=== PATIENT | male | born 1990 | race African-American/Black ===

== ENCOUNTER 2017-08-09 23:32 | Inpatient (IN) | payer OTHER ==
[~2017-08-09] VITALS: Ht 177.8 cm; Wt 82.0 kg
[2017-08-09 23:34] VITALS: BP 138/72; PULSE 89; RESP 16; TEMP 98.1; O2SAT 97
[2017-08-10] VITALS (8 sets, daily range): BP systolic 108–121; BP diastolic 51–71; PULSE 55–82; RESP 18–20; TEMP 97.7–98.6; O2SAT 97–100
[2017-08-10] MEDS ORDERED: SODIUM CHLOR 0.9% 1000 ML INJ 1,000 ML IV SCH (00:08)
--- NOTE | 2017-08-10 00:11 | PD ---
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 States he's also had some dark urine. States had kidney stone in the past but this is worse. Denies fevers, endorses nausea without vomiting. Pain is severe and intermittent. PFSH Past Medical History ADHD: Yes Diminished Hearing: No Kidney Stones: Yes Tetanus Vaccination: Unknown Influenza Vaccination: No Past Surgical History Endocrine Surgery: Yes (LITHOTRIPSY, STENT PLACED IN KIDNEY) Other Surgery: Yes (LEFT HAND) Social History Alcohol Use: Yes (OCCASSIONALLY) Tobacco Use: Yes (1PPD) [facility]: [facility] Allergies-Medications (Allergen,Severity, Reaction): Coded Allergies: acetaminophen (Verified Allergy, Severe, Hives, 08/09/17) hydrocodone (Verified Allergy, Severe, Hives, 08/09/17) tramadol (Verified Allergy, Severe, 08/09/17) Reported Meds & Prescriptions Reported Meds & Active Scripts Active No Active Prescriptions or Reported Medications Review of Systems Except as stated in HPI: all other systems reviewed are Neg Physical Exam Narrative GENERAL: WD/WN uncomfortable. SKIN: Warm and dry. HEAD: Atraumatic. Normocephalic. EYES: Pupils equal and round. No scleral icterus. No injection or drainage. ENT: No nasal bleeding or discharge. Mucous membranes pink and moist. NECK: Trachea midline. No JVD. CARDIOVASCULAR: Regular rate and rhythm. RESPIRATORY: No accessory muscle use. Clear to auscultation. Breath sounds equal bilaterally. GASTROINTESTINAL: Abdomen soft, non-tender, nondistended. Hepatic and splenic margins not palpable. CVA tenderness on right. MUSCULOSKELETAL: Extremities without clubbing, cyanosis, or edema. No obvious deformities. NEUROLOGICAL: Awake and alert. No obvious cranial nerve deficits. Motor grossly within normal limits. Five out of 5 muscle strength in the arms and legs. Normal speech. PSYCHIATRIC: Appropriate mood and affect; insight and judgment normal. Data Data Last Documented VS Vital Signs Date Time Temp Pulse Resp B/P (MAP) Pulse Ox O2 Delivery O2 Flow Rate FiO2 08/10/17 00:00 18 98 Room Air 08/09/17 23:34 98.1 89 Orders Orders Complete Blood Count With Diff (08/10/17 00:08) Comprehensive Metabolic Panel (08/10/17 00:08) Lipase (08/10/17 00:08) Urinalysis - C+S If Indicated (08/10/17 00:08) Ct Abd/Pel W/O Iv Contrast (08/10/17 00:08) Iv Access Insert/Monitor (08/10/17 00:08) Ecg Monitoring (08/10/17 00:08) Oximetry (08/10/17 00:08) Ondansetron Inj (Zofran Inj) (08/10/17 00:15) Sodium Chlor 0.9% 1000 Ml Inj (Ns 1000 M (08/10/17 00:08) Sodium Chloride 0.9% Flush (Ns Flush) (08/10/17 00:15) Ketorolac Inj (Toradol Inj) (08/10/17 00:15) Lorazepam Inj (Ativan Inj) (08/10/17 00:15) Urine Culture (08/10/17 00:10) Morphine Inj (Morphine Inj) (08/10/17 01:15) Sodium Chlor 0.9% 1000 Ml Inj (Ns 1000 M (08/10/17 01:15) Creatine Kinase (Cpk) (08/10/17 00:10) CKMB (08/10/17 00:10) CKMB% (08/10/17 00:10) Hydromorphone Pf Inj (Dilaudid Pf Inj) (08/10/17 02:45) Sodium Chlor 0.9% 1000 Ml Inj (Ns 1000 M (08/10/17 02:45) Admit Order (Ed Use Only) (08/10/17 ) Labs Laboratory Tests Test 08/10/17 00:10 White Blood Count 11.5 TH/MM3 Red Blood Count 4.44 MIL/MM3 Hemoglobin 15.3 GM/DL Hematocrit 45.6 % Mean Corpuscular Volume 102.5 FL Mean Corpuscular Hemoglobin 34.5 PG Mean Corpuscular Hemoglobin Concent 33.6 % Red Cell Distribution Width 13.2 % Platelet Count 266 TH/MM3 Mean Platelet Volume 8.5 FL Neutrophils (%) (Auto) 82.9 % Lymphocytes (%) (Auto) 8.9 % Monocytes (%) (Auto) 7.7 % Eosinophils (%) (Auto) 0.1 % Basophils (%) (Auto) 0.4 % Neutrophils # (Auto) 9.5 TH/MM3 Lymphocytes # (Auto) 1.0 TH/MM3 Monocytes # (Auto) 0.9 TH/MM3 Eosinophils # (Auto) 0.0 TH/MM3 Basophils # (Auto) 0.0 TH/MM3 CBC Comment DIFF FINAL Differential Comment Urine Color DARK-YELLOW Urine Turbidity HAZY Urine pH 5.0 Urine Specific [place] 1.026 Urine Protein 30 mg/dL Urine Glucose (UA) NEG mg/dL Urine Ketones TRACE mg/dL Urine Occult Blood MOD Urine Nitrite NEG Urine Bilirubin NEG Urine Urobilinogen 2.0 MG/DL Urine Leukocyte Esterase MOD Urine RBC 119 /hpf Urine WBC 12 /hpf Urine Squamous Epithelial Cells 2 /hpf Urine Transitional Epithelial Cells <1 /hpf Urine Uric Acid Crystals FEW /hpf Urine Bacteria RARE /hpf Urine Hyaline Casts 157 /lpf Urine Mucus FEW /lpf Microscopic Urinalysis Comment CULTURE INDICATED Blood Urea Nitrogen 25 MG/DL Creatinine 3.15 MG/DL Random Glucose 103 MG/DL Total Protein 9.7 GM/DL Albumin 5.3 GM/DL Calcium Level 10.4 MG/DL Alkaline Phosphatase 88 U/L Aspartate Amino Transf (AST/SGOT) 47 U/L Alanine Aminotransferase (ALT/SGPT) 42 U/L Total Bilirubin 0.5 MG/DL Sodium Level 138 MEQ/L Potassium Level 3.9 MEQ/L Chloride Level 102 MEQ/L Carbon Dioxide Level 24.7 MEQ/L Anion Gap 11 MEQ/L Estimat Glomerular Filtration Rate 28 ML/MIN Total Creatine Kinase 1316 U/L Creatine Kinase MB 21.2 NG/ML Creatine Kinase MB % 1.6 % Lipase 152 U/L [facility] Medical Decision Making Medical Screen Exam Complete: Yes Emergency Medical Condition: Yes Differential Diagnosis Kidney stone, CALISTA, UTI, rhabdomyolysis. Narrative Course Patient roomed in ED has CALISTA with cr of 3. Kidney stone in bladder probably recently passed. Hematuria without infection. Multiple doses of pain medicine given. Discussed with Dr. Blcak for admission. Diagnosis Primary Impression: CALISTA (acute kidney injury) Additional Impressions: Rhabdomyolysis Body aches Hematuria Admitting Information Admitting Physician Requests: Admit Scripts No Active Prescriptions or Reported Meds Condition: Stable Emmanuel Oneill MD Aug 10, 2017 00:11
[2017-08-10] MEDS ORDERED: LORazepam 2 MG/ML VIAL IV PUSH ONE (00:15)
[2017-08-10] MEDS ORDERED: KETOROLAC TROMETHAMINE 30 MG/ML (IVP) VIAL IVP ONE (00:15)
[2017-08-10] MEDS ORDERED: ONDANSETRON HCL 4 MG/2 ML VIAL IVP ONE (00:15)
[2017-08-10] MEDS ORDERED: SODIUM CHLORIDE 0.9% FLUSH 10 ML FLUSH IV FLUSH PRN ×2 (00:15→03:00)
[2017-08-10 00:33] LABS: AUTOMATED NEUTROPHIL # 9.5 TH/MM3 (1.8-7.7); BACTERIA, URINE RARE /hpf; BASOPHIL % 0.4 % (0.0-2.0); BLOOD, URINE MOD (NEG); EOSINOPHIL % 0.1 % (0.0-4.0); GLUCOSE,URINE NEG (NEG); HEMATOCRIT 45.6 % (39.0-51.0); HEMO FLAGS DIFF FINAL; HYALINE CAST, URINE 157 /lpf (RARE); KETONE, URINE TRACE mg/dL (NEG); LYMPH % 8.9 % (9.0-44.0); MEAN CELL VOLUME 102.5 FL (80.0-100.0); MEAN CORPUSCULAR HEMOGLOBIN 34.5 PG (27.0-34.0); MEAN CORPUSCULAR HGB CONC 33.6 % (32.0-36.0); MONO % 7.7 % (0.0-8.0); MUCUS URINE FEW /lpf (OCC); NEUT % 82.9 % (16.0-70.0); NITRITE,URINE NEG (NEG); PLATELET COUNT 266 TH/MM3 (150-450); RED BLOOD COUNT 4.44 MIL/MM3 (4.50-5.90); RED CELL DISTRIBUTION WIDTH 13.2 % (11.6-17.2); SQUAMOUS EPITHELIAL CELL URINE 2 /hpf (0-5); TRANSITIONAL EPI CELLS, URINE <1 /hpf; URIC ACID CRYSTALS, URINE FEW /hpf; URINE COLOR DARK-YELLOW (YELLW/STRAW); WHITE BLOOD COUNT 11.5 TH/MM3 (4.0-11.0)
[2017-08-10 00:34] LABS: COMMENT (UR) CULTURE INDICATED; CULTURE IF INDICATED CULTURE INDICATED
[2017-08-10 00:58] LABS: ALT (GPT) 42 U/L (12-78); ANION GAP 11 MEQ/L (5-15); AST (GOT) 47 U/L (15-37); BICARBONATE 24.7 MEQ/L (21.0-32.0); BLOOD UREA NITROGEN 25 MG/DL (7-18); CHLORIDE 102 MEQ/L (98-107); GLOMERULAR FILTRATION RATE 28 ML/MIN (>89); POTASSIUM 3.9 MEQ/L (3.5-5.1); SODIUM (NA) 138 MEQ/L (136-145)
--- NOTE | 2017-08-10 00:58 | RADRPT ---
EXAM DATE/TIME: 08/10/2017 00:36 [place] COMPARISON: No previous studies available for comparison. INDICATIONS : Bilateral lower back pain and vomiting for 4 hours ORAL CONTRAST: No oral contrast ingested. RADIATION DOSE: 5.87 CTDIvol (mGy) MEDICAL HISTORY : Renal calculi. SURGICAL HISTORY : renal stents, lithotripsy ENCOUNTER: Initial ACUITY: 1 day PAIN SCALE: 10/10 LOCATION: Bilateral abdomen TECHNIQUE: Volumetric scanning of the abdomen and pelvis was performed. Using automated exposure control and ad justment of the mA and/or kV according to patient size, radiation dose was kept as low as reasonably achievable to obtain optimal diagnostic quality images. DICOM format image data is available electro nically for review and comparison. FINDINGS: LOWER LUNGS: The visualized lower lungs are clear. LIVER: Homogeneous density without lesion. There is no dilation of the biliary tree. No calcified gallston es. SPLEEN: Normal size without lesion. PANCREAS: Within normal limits. KIDNEYS: Normal in size and shape. There are multiple bilateral subcentimeter nonobstructing renal calculi. I do not see hydronephrosis or hydroureter. Minimal retroperitoneal fat makes it difficult to follow th e ureters into the deep pelvis but I do not see obvious ureteric stones. There may be punctate calcul us within the lumen of the decompressed urinary bladder which could represent a recently passed 2 mm stone. ADRENAL GLANDS: Within normal limits. VASCULAR: There is no aortic aneurysm. BOWEL/MESENTERY: The stomach, small bowel, and colon demonstrate no acute abnormality. There is no free intraperitone al air or fluid. ABDOMINAL WALL: Within normal limits. RETROPERITONEUM: There is no lymphadenopathy. BLADDER: No wall thickening or mass. REPRODUCTIVE: Within normal limits. INGUINAL: There is no lymphadenopathy or hernia. MUSCULOSKELETAL: Within normal limits for patient age. CONCLUSION: 1. Bilateral nonobstructing multiple subcentimeter renal calculi. 2. No obvious ureteric stones although it is difficult to follow the ureters and the deep pelvis. No hydronephrosis or hydroureter. 3. There may be a punctate, 1-2 mm stone within the decompressed urinary bladder. This may represent a recently passed calculus. 4. The cecal appendix is identified and is radiographically normal.. Hima Garner MD on August 10, 2017 at 0:51 Board Certified Radiologist. This report was verified electronically.
[2017-08-10 01:00] LABS: ALKALINE PHOSPHATASE 88 U/L (45-117); TOTAL BILIRUBIN ADULT 0.5 MG/DL (0.2-1.0)
[2017-08-10] MEDS ORDERED: SODIUM CHLOR 0.9% 1000 ML INJ 1,000 ML IV ONE ×3 (01:15→12:15)
[2017-08-10] MEDS ORDERED: MORPHINE SULFATE 8 MG/ML INJ IV PUSH ONE (01:15)
[2017-08-10 02:32] LABS: CREATINE KINASE 1316 U/L (39-308)
[2017-08-10] MEDS ORDERED: HYDROmorphone HCL PF 1 MG/ML VIAL IV PUSH ONE (02:45)
[2017-08-10 02:49] LABS: CKMB 21.2 NG/ML (0.5-3.6)
[2017-08-10] MEDS ORDERED: NALOXONE HCL 0.4 MG/ML AMP IV PUSH PRN (03:00)
[2017-08-10] MEDS: SODIUM CHLOR 0.9% 1000 ML INJ 1,000 ML IV SCH ×4 (04:27→16:30)
[2017-08-10 07:12] LABS: BICARBONATE 25.2 MEQ/L (21.0-32.0); POTASSIUM 3.6 MEQ/L (3.5-5.1)
[2017-08-10] MEDS ORDERED: SODIUM CHLORIDE 0.9% FLUSH 10 ML FLUSH IV FLUSH SCH (09:00)
[2017-08-10] MEDS ORDERED: MORPHINE SULFATE 4 MG/ML INJ IV PUSH ONE (09:15)
[2017-08-10] MEDS ORDERED: cefTRIAXone INJ 1,000 MG in SODIUM CHLORIDE 0.9% INJ 100 ML IV SCH (10:00)
--- NOTE | 2017-08-10 10:34 | HHI.HP ---
[facility] No Primary Care Physician Admission Diagnosis Acute Kidney Injury Diagnoses: Chief Complaint: Muscle cramps Travel History International Travel<30 Days: No Contact w/Intl Traveler <30 Da: No Traveled to Known Affected Are: No History of Present Illness 27-year-old black male being admitted for acute kidney injury secondary to rhabdomyolysis. Patient was in his usual state of health until yesterday when he experienced a sudden onset of nausea, generalized weakness, and diffuse muscle aches, lightheadedness, and cold sweats near the end of his working shift. Patient was doing landscape work at the time and says that he suddenly felt the symptoms, particularly muscle cramps "out of no where." He did end up vomiting on time prior to coming to the emergency room. Says that his muscle aches are prominently in his left medial thigh, abdomen, back, and chest. This was worsened with further movement and the patient decided to proceed to the emergency room with a friend. Patient denies ever experiencing such symptoms before. He reports abdominal cramps as well but denies any dysuria or any pyuria. He denies having any blood in his stool or any changes in his bowel movements which he says are daily and occasionally hard. He says that his symptoms have improved since admission but are still persistent, particularly the muscle cramps. Says his nausea comes intermittently when the cramps emerge in his lower back. He says that his back pain does not feel anything similar to the pain he had when he had kidney stones in the past. 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 He says he also drinks alcohol heavily, beer in particular and up to 2-3 beers a night, says he drinks at least 2-3 cases per week and has been doing this for the past year roughly. Does report smoking cigarettes and marijuana. Review of Systems Except as stated in HPI: all other systems reviewed are Neg Past Family Social History Past Medical History Nephrolithiasis Past Surgical History Lithotripsy, renal stent placement Allergies: Coded Allergies: hydrocodone (Verified Allergy, Severe, Hives, 08/09/17) tramadol (Verified Allergy, Severe, 08/09/17) Family History Denies any family history of kidney stones or kidney issues or any rheumatoid- like disease Social History Works [employer]ing, smoke cigarettes, marijuana, and drinks alcohol heavily Physical Exam Vital Signs Vital Signs Date Time Temp Pulse Resp B/P (MAP) Pulse Ox O2 Delivery O2 Flow Rate FiO2 08/10/17 07:00 97.7 63 20 121/71 (88) 97 08/10/17 06:00 68 08/10/17 06:00 68 20 114/67 (83) 99 08/10/17 05:00 60 08/10/17 04:38 08/10/17 04:31 98.6 71 20 119/65 (83) 97 08/10/17 04:31 65 08/10/17 03:25 20 08/10/17 03:00 82 18 116/67 (83) 99 Room Air 08/10/17 00:00 18 98 Room Air 08/09/17 23:34 98.1 89 16 138/72 (94) 97 Room Air Physical Exam VS: Reviewed, stable, afebrile GENERAL: Resting comfortably in bed, will have intermittent bouts of mild distress secondary to pain which he attributes to his muscle cramps SKIN: Warm and dry. EYES: Pupils equal and round. No scleral icterus. No injection or drainage. ENT: No nasal bleeding or discharge. Mucous membranes pink and moist. CARDIOVASCULAR: Regular rate and rhythm. no murmurs RESPIRATORY: No accessory muscle use. Clear to auscultation. Breath sounds equal bilaterally. GASTROINTESTINAL: Abdomen soft, minimal tenderness to palpation diffusely, voluntary guarding, no rebound, nondistended MUSCULOSKELETAL: Extremities without clubbing, cyanosis, or edema. No obvious deformities. grossly intact ROM with 5/5 strength in upper and lower extremities proximally. Moderate tenderness to palpation noted on medial left thigh along with right calf NEUROLOGICAL: Awake and alert. No obvious cranial nerve deficits. No facial droop nor slurred speech noted. PSYCHIATRIC: Appropriate mood and affect; insight and judgment normal. Laboratory Laboratory Tests Test 08/10/17 00:10 08/10/17 06:26 White Blood Count 11.5 Red Blood Count 4.44 Hemoglobin 15.3 Hematocrit 45.6 Mean Corpuscular Volume 102.5 Mean Corpuscular Hemoglobin 34.5 Mean Corpuscular Hemoglobin Concent 33.6 Red Cell Distribution Width 13.2 Platelet Count 266 Mean Platelet Volume 8.5 Neutrophils (%) (Auto) 82.9 Lymphocytes (%) (Auto) 8.9 Monocytes (%) (Auto) 7.7 Eosinophils (%) (Auto) 0.1 Basophils (%) (Auto) 0.4 Neutrophils # (Auto) 9.5 Lymphocytes # (Auto) 1.0 Monocytes # (Auto) 0.9 Eosinophils # (Auto) 0.0 Basophils # (Auto) 0.0 CBC Comment DIFF FINAL Differential Comment Urine Color DARK-YELLOW Urine Turbidity HAZY Urine pH 5.0 Urine Specific [place] 1.026 Urine Protein 30 Urine Glucose (UA) NEG Urine Ketones TRACE Urine Occult Blood MOD Urine Nitrite NEG Urine Bilirubin NEG Urine Urobilinogen 2.0 Urine Leukocyte Esterase MOD Urine RBC 119 Urine WBC 12 Urine Squamous Epithelial Cells 2 Urine Transitional Epithelial Cells <1 Urine Uric Acid Crystals FEW Urine Bacteria RARE Urine Hyaline Casts 157 Urine Mucus FEW Microscopic Urinalysis Comment CULTURE INDICATED Blood Urea Nitrogen 25 20 Creatinine 3.15 1.94 Random Glucose 103 107 Total Protein 9.7 Albumin 5.3 Calcium Level 10.4 8.2 Alkaline Phosphatase 88 Aspartate Amino Transf (AST/SGOT) 47 Alanine Aminotransferase (ALT/SGPT) 42 Total Bilirubin 0.5 Sodium Level 138 142 Potassium Level 3.9 3.6 Chloride Level 102 109 Carbon Dioxide Level 24.7 25.2 Anion Gap 11 8 Estimat Glomerular Filtration Rate 28 50 Total Creatine Kinase 1316 Creatine Kinase MB 21.2 Creatine Kinase MB % 1.6 Lipase 152 Date/Time Source Procedure Growth Status 08/10/17 00:10 Urine Clean Catch Urine Culture Pending Worksheet Result Diagram: 08/10/17 0010 08/10/17 0626 Imaging Last Impressions Abdomen/Pelvis CT 08/10/17 0008 Signed Impressions: Service Date/Time: July 00:36 - CONCLUSION: 1. Bilateral nonobstructing multiple subcentimeter renal calculi. 2. No obvious ureteric stones although it is difficult to follow the ureters and the deep pelvis. No hydronephrosis or hydroureter. 3. There may be a punctate, 1-2 mm stone within the decompressed urinary bladder. This may represent a recently passed calculus. 4. The cecal appendix is identified and is radiographically normal.. Hima Garner MD I independently reviewed the CT scan and noted substantial fecal matter throughout the colon. Caprini VTE Risk Assessment Caprini VTE Risk Assessment: No/Low Risk (score <= 1) Caprini Risk Assessment Model Point Value = 1 Point Value = 2 Point Value = 3 Point Value = 5 Age 41-60 Minor surgery BMI > 25 kg/m2 Swollen legs Varicose veins or History of unexplained or recurrent spontaneous Oral contraceptives or hormone replacement Sepsis (< 1 month) Serious lung disease, including pneumonia (< 1 month) Abnormal pulmonary function Acute myocardial infarction Congestive heart failure (< 1 month) History of inflammatory bowel disease Medical patient at bed rest Age 61-74 Arthroscopic surgery Major open surgery (> 45 min) Laparoscopic surgery (> 45 min) Malignancy Confined to bed (> 72 hours) Immobilizing plaster cast Central venous access Age >= 75 History of VTE Family history of VTE Factor V Leiden Prothrombin [id number] Lupus anticoagulant Anticardiolipin antibodies Elevated serum homocysteine Heparin-induced thrombocytopenia Other congenital or acquired thrombophilia Stroke (< 1 month) Elective arthroplasty Hip, pelvis, or leg fracture Acute spinal cord injury (< 1 month) Prophylaxis Regimen Total Risk Factor Score Risk Level Prophylaxis Regimen 0-1 Low Early ambulation 2 Moderate Order ONE of the following: *Sequential Compression Device (SCD) *Heparin 5000 units SQ BID 3-4 Higher Order ONE of the following medications: *Heparin 5000 units SQ TID *Enoxaparin/Lovenox 40 mg SQ daily (WT < 150 kg, CrCl > 30 mL/min) *Enoxaparin/Lovenox 30 mg SQ daily (WT < 150 kg, CrCl > 10-29 mL/min) *Enoxaparin/Lovenox 30 mg SQ BID (WT < 150 kg, CrCl > 30 mL/min) AND/OR *Sequential Compression Device (SCD) 5 or more Highest Order ONE of the following medications: *Heparin 5000 units SQ TID (Preferred with Epidurals) *Enoxaparin/Lovenox 40 mg SQ daily (WT < 150 kg, CrCl > 30 mL/min) *Enoxaparin/Lovenox 30 mg SQ daily (WT < 150 kg, CrCl > 10-29 mL/min) *Enoxaparin/Lovenox 30 mg SQ BID (WT < 150 kg, CrCl > 30 mL/min) AND *Sequential Compression Device (SCD) Assessment and Plan Assessment and Plan 27-year-old black male being admitted for acute kidney injury secondary to rhabdomyolysis Acute kidney injury - Most likely secondary to myoglobinemia - Received 3 L boluses in ER, continue with IV hydration, repeat labs in a.m. Myoglobinemia - Suspect mild rhabdomyolysis with CK around 1300, treated with IV hydration as above. Suspect this is due to prolonged exertion at work with heavy alcohol history and dehydration - Repeat CK level -Ordering magnesium and phosphorus levels, will repeat as necessary Muscle pain - Likely from myoglobinemia, treat as above, will additionally use ice and or heat applications. Avoid NSAIDs, will use narcotic pain medication sparingly, will try muscle relaxant when necessary Suspected UTI - Clinically does not have one, but urinalysis is very questionable otherwise, we'll follow-up urine culture, will cover with ceftriaxone for now Heavy alcohol intake - [facility] protocol Early ambulation for DVT prophylaxis Physician Certification 2 Midnight Certification Type: Admission for Inpatient Services Order for Inpatient Services The services are ordered in accordance with Medicare regulations or non- Medicare payer requirements, as applicable. In the case of services not specified as inpatient-only, they are appropriately provided as inpatient services in accordance with the 2-midnight benchmark. Estimated LOS (days): 2 2 days is the estimated time the patient will need to remain in the hospital, assuming treatment plan goals are met and no additional complications. Post-Hospital Plan: Home Milan Johnston MD Aug 10, 2017 10:34
[2017-08-10] MEDS ORDERED: LORazepam 2 MG/ML VIAL IV PUSH PRN ×4 (11:00)
[2017-08-10] MEDS ORDERED: FLUMAZENIL 0.5 MG/5 ML VIAL IV PUSH PRN (11:00)
[2017-08-10] MEDS ORDERED: BACLOFEN 10 MG TAB PO PRN (11:00)
[2017-08-10] MEDS ORDERED: LORazepam 1 MG TAB PO PRN (11:00)
[2017-08-10] MEDS ORDERED: LORazepam 2 MG TAB PO PRN (11:00)
[2017-08-10 11:08] LABS: MAGNESIUM 2.4 MG/DL (1.5-2.5)
[2017-08-10 11:59] LABS: CKMB 25.7 NG/ML (0.5-3.6)
[2017-08-10] MEDS ORDERED: ACETAMINOPHEN/CODEINE 300 MG/30 MG TAB PO PRN (13:15)
[2017-08-10] MEDS ORDERED: REMOVE OLD PATCH T-DERMAL SCH (13:30)
[2017-08-10] MEDS ORDERED: NICOTINE 14 MG/24 HR PATCH T-DERMAL SCH (13:30)
== END 2017-08-10 20:55 | disposition left against medical advice (07) | DRG 683 ==
LOC: NEPE 23:32 → NEDA 08-10 02:50 → HCIS 08-10 04:30
PROVIDERS: ADMIT Hospitalist; ATTEND Hospitalist
DX: N17.9 Acute kidney failure, unspecified (principal); M62.82 Rhabdomyolysis; F17.210 Nicotine dependence, cigarettes, uncomplicated; N20.0 Calculus of kidney; Z87.442 Personal history of urinary calculi
CPT/HCPCS: 74176; 80048; 80053; 81001; 82550; 82552; 83690; 83735; 84100; 85025; 87086; 96361; 96374; 96375; J0696; J1170; J1885; J2060; J2270; J2405; J7030

== ENCOUNTER 2017-08-22 19:55 | Emergency (ER) | payer OTHER ==
[~2017-08-22] VITALS: Ht 175.3 cm; Wt 80.5 kg
[2017-08-22 19:59] VITALS: BP 148/64; PULSE 89; RESP 15; TEMP 98.9; O2SAT 100
[2017-08-22] MEDS ORDERED: SODIUM CHLOR 0.9% 1000 ML INJ 1,000 ML IV ONE (22:03)
--- NOTE | 2017-08-22 22:11 | PD ---
HPI Chief Complaint: Flank/Kidney Pain Time Seen by Provider: 21:54 Travel History International Travel<30 days: No Contact w/Intl Traveler<30days: No Traveled to known affect area: No History of Present Illness HPI 27-year-old male presents to the emergency department for evaluation of abdominal pain. Patient states that has been ongoing for approximately week. He states this is the third time he believes he has had a kidney stone. Patient states he was just at [facility] and had a CT scan done. However, he left before getting any results or any other testing. The patient states that he was waiting too long so he came to [place]. Patient denies any fevers or chills. He has no chronic medical problems. Takes no prescribed medications. Patient states that he had have lithotripsy and a stent placed for previous kidney stones. He states this does feel similar. Patient states he is having difficulty urinating. He reports diarrhea, no nausea, vomiting. Patient was here earlier this month and was admitted for acute kidney injury, rhabdomyolysis. He did leave AGAINST MEDICAL ADVICE does not been evaluated for the same since. 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 PFSH Past Medical History ADHD: Yes Autoimmune Disease: No Cancer: No Cardiovascular Problems: No Diminished Hearing: No Endocrine: No Genitourinary: Yes Immune Disorder: No Kidney Stones: Yes Musculoskeletal: No Neurologic: No Psychiatric: No Reproductive: No Respiratory: No Immunizations Current: Yes Past Surgical History AICD: No Arteriovenous Shunt: No Body Medical Devices: STENT IN THE PAST DUE TO KIDNEY STONES Endocrine Surgery: Yes (LITHOTRIPSY, STENT PLACED IN KIDNEY) Genitourinary Surgery: Yes (LITHOTRIPSY, STENT PLACED IN KIDNEY) Insulin Pump: No Joint Replacement: No Pacemaker: No Other Surgery: Yes (LEFT HAND) Social History Alcohol Use: Yes (OCCASSIONALLY) Tobacco Use: Yes (1PPD) Substance Use: Yes ([facility]) Allergies-Medications (Allergen,Severity, Reaction): Coded Allergies: hydrocodone (Verified Allergy, Severe, Hives, 08/22/17) tramadol (Verified Allergy, Severe, 08/22/17) Reported Meds & Prescriptions Reported Meds & Active Scripts Active No Active Prescriptions or Reported Medications Review of Systems Except as stated in HPI: all other systems reviewed are Neg Physical Exam Narrative GENERAL: Well-nourished, well-developed male patient, afebrile. SKIN: Focused skin assessment warm/dry. HEAD: Normocephalic. Atraumatic EYES: No scleral icterus. No injection or drainage. NECK: Supple, trachea midline. No JVD or lymphadenopathy. CARDIOVASCULAR: Regular rate and rhythm without murmurs, gallops, or rubs. RESPIRATORY: Breath sounds equal bilaterally. No accessory muscle use. Lungs sounds are clear to auscultation. GASTROINTESTINAL: Abdomen soft and nondistended. Patient has generalized tenderness to palpation, worse in the left abdomen, pelvic region. MUSCULOSKELETAL: No cyanosis, or edema. BACK: Nontender without obvious deformity. No CVA tenderness. Data Data Last Documented VS Vital Signs Date Time Temp Pulse Resp B/P (MAP) Pulse Ox O2 Delivery O2 Flow Rate FiO2 08/22/17 19:59 98.9 89 15 148/64 (92) 100 Room Air Orders Orders Complete Blood Count With Diff (08/22/17 22:03) Comprehensive Metabolic Panel (08/22/17 22:03) Urinalysis - C+S If Indicated (08/22/17 22:03) Ecg Monitoring (08/22/17 22:03) Iv Access Insert/Monitor (08/22/17 22:03) Morphine Inj (Morphine Inj) (08/22/17 22:15) Ondansetron Inj (Zofran Inj) (08/22/17 22:15) Sodium Chloride 0.9% Flush (Ns Flush) (08/22/17 22:15) Sodium Chlor 0.9% 1000 Ml Inj (Ns 1000 M (08/22/17 22:03) Lipase (08/22/17 22:03) Creatine Kinase (Cpk) (08/22/17 22:03) Labs Laboratory Tests Test 08/22/17 22:15 08/22/17 22:33 White Blood Count 6.7 TH/MM3 Red Blood Count 3.90 MIL/MM3 Hemoglobin 13.4 GM/DL Hematocrit 40.7 % Mean Corpuscular Volume 104.4 FL Mean Corpuscular Hemoglobin 34.3 PG Mean Corpuscular Hemoglobin Concent 32.9 % Red Cell Distribution Width 13.0 % Platelet Count 244 TH/MM3 Mean Platelet Volume 8.2 FL Neutrophils (%) (Auto) 56.6 % Lymphocytes (%) (Auto) 30.8 % Monocytes (%) (Auto) 9.5 % Eosinophils (%) (Auto) 2.4 % Basophils (%) (Auto) 0.7 % Neutrophils # (Auto) 3.8 TH/MM3 Lymphocytes # (Auto) 2.1 TH/MM3 Monocytes # (Auto) 0.6 TH/MM3 Eosinophils # (Auto) 0.2 TH/MM3 Basophils # (Auto) 0.0 TH/MM3 CBC Comment DIFF FINAL Differential Comment Blood Urea Nitrogen 16 MG/DL Creatinine 1.25 MG/DL Random Glucose 100 MG/DL Total Protein 7.7 GM/DL Albumin 4.1 GM/DL Calcium Level 8.7 MG/DL Alkaline Phosphatase 66 U/L Aspartate Amino Transf (AST/SGOT) 23 U/L Alanine Aminotransferase (ALT/SGPT) 25 U/L Total Bilirubin 0.4 MG/DL Sodium Level 141 MEQ/L Potassium Level 3.8 MEQ/L Chloride Level 106 MEQ/L Carbon Dioxide Level 28.1 MEQ/L Anion Gap 7 MEQ/L Estimat Glomerular Filtration Rate 83 ML/MIN Total Creatine Kinase 255 U/L Lipase 295 U/L Urine Color YELLOW Urine Turbidity CLEAR Urine pH 6.0 Urine Specific [place] 1.034 Urine Protein TRACE mg/dL Urine Glucose (UA) NEG mg/dL Urine Ketones NEG mg/dL Urine Occult Blood NEG Urine Nitrite NEG Urine Bilirubin NEG Urine Urobilinogen 2.0 MG/DL Urine Leukocyte Esterase NEG Urine RBC 1 /hpf Urine WBC 2 /hpf Urine Squamous Epithelial Cells 1 /hpf Urine Mucus MANY /lpf Microscopic Urinalysis Comment CULT NOT INDICATED MDM Medical Decision Making Medical Screen Exam Complete: Yes Emergency Medical Condition: Yes Medical Record Reviewed: Yes Differential Diagnosis Nephrolithiasis versus UTI versus acute kidney injury versus electrolyte abnormality versus dehydration Narrative Course 27-year-old male presents to the emergency department for evaluation of abdominal pain, believes that the kidney stone. He was admitted earlier this month and was diagnosed with acute kidney injury, rhabdomyolysis. He left AGAINST MEDICAL ADVICE has not followed up for this. He also just left [facility] because he states he was waiting too long after getting a CT scan done. Sounds like he left AGAINST MEDICAL ADVICE there is well. I will attempt to obtain the records from [facility] to avoid having to repeat a CT scan which was just done. CBC, CMP, lipase, CK, UA are ordered and pending. Patient is given normal saline 1 L IV bolus, Zofran 4 mg IV, morphine 4 mg IV. CBC shows no acute abnormality. CMP is unremarkable. Lipase is 295. CK is 255. UA is negative for acute infection, negative for occult blood. I was unable to obtain CT records from previous hospital. However, patient just recently had CT scan abdomen/pelvis done here on August 10, 2017. I reviewed these results. CT showed 1. Bilateral nonobstructing multiple subcentimeter renal calculi; 2. No obvious ureteric stones although it is difficult to follow the ureters and the deep pelvis. No hydronephrosis or hydroureter; 3. There may be a punctate, 1-2 mm stone within the decompressed urinary bladder. This may represent a recently passed calculus; 4. The cecal appendix is identified and is radiographically normal.. I discussed results with the patient as well as my attending physician, Dr. Harrison. He agrees plan and disposition. Patient is instructed to follow-up with the urologist palpation. He verbalizes agreement and understanding. The patient was discharged in stable condition with instructions, including return instructions and follow up instructions. Diagnosis Primary Impression: Abdominal pain Qualified Codes: R10.9 - Unspecified abdominal pain Referrals: Jordin Bateman MD call for appointment Patient Instructions: Abdominal Pain (ED), General Instructions Additional Instructions: Follow-up with urology. Continue pain medications as needed for pain. Follow-up with your primary care physician. Return to the emergency department for any acute worsening of symptoms. Med/Other Pt SpecificInfo: No Change to Meds Scripts No Active Prescriptions or Reported Meds Disposition: 01 DISCHARGE HOME Condition: Stable Praveen Zavaladavid BUTLER Aug 22, 2017 22:11
[2017-08-22] MEDS ORDERED: MORPHINE SULFATE 4 MG/ML INJ IV PUSH ONE (22:15)
[2017-08-22] MEDS ORDERED: SODIUM CHLORIDE 0.9% FLUSH 10 ML FLUSH IVF PRN (22:15)
[2017-08-22] MEDS ORDERED: ONDANSETRON HCL 4 MG/2 ML VIAL IV PUSH ONE (22:15)
[2017-08-22 22:38] LABS: AUTOMATED NEUTROPHIL # 3.8 TH/MM3 (1.8-7.7); BASOPHIL % 0.7 % (0.0-2.0); EOSINOPHIL # 0.2 TH/MM3 (0-0.4); EOSINOPHIL % 2.4 % (0.0-4.0); HEMATOCRIT 40.7 % (39.0-51.0); HEMO FLAGS DIFF FINAL; LYMPH % 30.8 % (9.0-44.0); LYMPHOCYTE # 2.1 TH/MM3 (1.0-4.8); MEAN CELL VOLUME 104.4 FL (80.0-100.0); MEAN CORPUSCULAR HEMOGLOBIN 34.3 PG (27.0-34.0); MEAN CORPUSCULAR HGB CONC 32.9 % (32.0-36.0); MONO % 9.5 % (0.0-8.0); NEUT % 56.6 % (16.0-70.0); PLATELET COUNT 244 TH/MM3 (150-450); WHITE BLOOD COUNT 6.7 TH/MM3 (4.0-11.0)
[2017-08-22 22:42] LABS: ALT (GPT) 25 U/L (12-78); ANION GAP 7 MEQ/L (5-15); AST (GOT) 23 U/L (15-37); BICARBONATE 28.1 MEQ/L (21.0-32.0); BLOOD UREA NITROGEN 16 MG/DL (7-18); CHLORIDE 106 MEQ/L (98-107); GLOMERULAR FILTRATION RATE 83 ML/MIN (>89); POTASSIUM 3.8 MEQ/L (3.5-5.1); SODIUM (NA) 141 MEQ/L (136-145)
[2017-08-22 22:45] LABS: ALKALINE PHOSPHATASE 66 U/L (45-117); CREATINE KINASE 255 U/L (39-308); TOTAL BILIRUBIN ADULT 0.4 MG/DL (0.2-1.0)
[2017-08-22 22:52] LABS: BLOOD, URINE NEG (NEG); COMMENT (UR) CULT NOT INDICATED; CULTURE IF INDICATED CULT NOT INDICATED; GLUCOSE,URINE NEG (NEG); KETONE, URINE NEG (NEG); MUCUS URINE MANY /lpf (OCC); NITRITE,URINE NEG (NEG); SQUAMOUS EPITHELIAL CELL URINE 1 /hpf (0-5); URINE COLOR YELLOW (YELLW/STRAW)
== END 2017-08-22 23:36 | disposition home or self-care (01) ==
LOC: NEPC 19:55
DX: R10.9 Unspecified abdominal pain (principal); R30.0 Dysuria; R19.7 Diarrhea, unspecified; F17.200 Nicotine dependence, unspecified, uncomplicated; Z87.442 Personal history of urinary calculi; Z86.59 Personal history of other mental and behavioral disorders
CPT/HCPCS: 80053; 81001; 82550; 83690; 85025; 96361; 96374; 96375; 99284; J2270; J2405; J7030

== ENCOUNTER 2017-10-25 18:22 | Emergency (ER) | payer OTHER ==
[~2017-10-25] VITALS: Ht 175.3 cm; Wt 77.3 kg
[2017-10-25 18:23] VITALS: BP 171/86; PULSE 111; RESP 20; TEMP 99.2; O2SAT 98
--- NOTE | 2017-10-25 19:22 | RADRPT ---
EXAM DATE/TIME: 10/25/2017 18:57 [facility] COMPARISON: No previous studies available for comparison. INDICATIONS : Left foot pain without trauma. MEDICAL HISTORY : Renal stones. SURGICAL HISTORY : Hand surgery, unspecified, left. ENCOUNTER: Initial ACUITY: 1 day PAIN SCORE: 7/10 LOCATION: Left foot, dorsal. FINDINGS: Three view examination of the left foot with a 10 balloon using the area of discomfort on the lateral projection. Subjacent to the pain is a small ossific fragment which could represent a tiny avulsion fracture. There may be a focal area of cortical disruption along the dorsum of the navicular, possibl y the source of the avulsion. CONCLUSION: 1. Possible small avulsion fragment off the dorsum of the navicular. 2. No large fracture injury. Hima Garner MD on October 25, 2017 at 19:17 Board Certified Radiologist. This report was verified electronically.
[2017-10-25] MEDS ORDERED: IBUPROFEN 800 MG TAB PO ONE (20:30)
--- NOTE | 2017-10-25 20:35 | PD ---
HPI Chief Complaint: Injury Time Seen by Provider: 20:18 Travel History International Travel<30 days: No Contact w/Intl Traveler<30days: No Traveled to known affect area: No History of Present Illness HPI 27-year-old black male presents to emergency department complains of right foot and ankle pain. The patient states that he's been having pain for the last 1-2 days. He is very hard to get a history from. The patient states that he may have had an injury by jumping off an elevated platform. The patient complains of pain in his dorsum of the foot and lateral ankle. He denies any numbness or tingling. Pain is moderate. No alleviating factor. Exacerbated by walking. PFSH Past Medical History Narrative Medical Kidney stones, ADHD ADHD: Yes Autoimmune Disease: No Cancer: No Cardiovascular Problems: No Diminished Hearing: No Endocrine: No Genitourinary: Yes Immune Disorder: No Kidney Stones: Yes Musculoskeletal: No Neurologic: No Psychiatric: No Reproductive: No Respiratory: No Immunizations Current: Yes Tetanus Vaccination: > 5 Years Past Surgical History AICD: No Arteriovenous Shunt: No Body Medical Devices: STENT IN THE PAST DUE TO KIDNEY STONES Endocrine Surgery: Yes (LITHOTRIPSY, STENT PLACED IN KIDNEY) Genitourinary Surgery: Yes (LITHOTRIPSY, STENT PLACED IN KIDNEY) Insulin Pump: No Joint Replacement: No Pacemaker: No Other Surgery: Yes (LEFT HAND) Social History Alcohol Use: Yes (OCCASSIONALLY) Tobacco Use: Yes (1PPD) Substance Use: Yes ([facility]) Allergies-Medications (Allergen,Severity, Reaction): Coded Allergies: hydrocodone (Verified Allergy, Severe, Hives, 08/22/17) tramadol (Verified Allergy, Severe, 08/22/17) Reported Meds & Prescriptions Reported Meds & Active Scripts Active No Active Prescriptions or Reported Medications Review of Systems General / Constitutional: No: Fever Eyes: No: Visual changes HENT: No: Headaches Cardiovascular: No: Chest Pain or Discomfort Respiratory: No: Shortness of Breath Gastrointestinal: No: Abdominal Pain Genitourinary: No: Dysuria Musculoskeletal: Positive: Arthralgias, Limited ROM, Edema, Pain Skin: No Rash Neurologic: No: Weakness Psychiatric: No: Depression Endocrine: No: Polydipsia Hematologic/Lymphatic: No: Easy Bruising Physical Exam Narrative GENERAL: This is a well-nourished, well-developed patient, in no apparent distress. SKIN: No rashes, ecchymoses or lesions. Warm and dry. HEAD: Atraumatic. Normocephalic. EYES: PERRL, EOMI, no discharge or injection. No scleral icterus. EARS: Clear NOSE: Nasal turbinates appear normal. THROAT: Mucosa pink and moist. Airway patent. NECK: Trachea midline. supple, moves head freely. LUNGS: Clear to auscultation. CV: Regular in rhythm. ABDOMEN: Soft nontender. EXT: No clubbing cyanosis. Examination the right lower extremity reveals pain to the dorsum of the foot and the anterior talar fibular ligament region. Mild swelling. The skin is intact. He has intact dorsalis pedis pulse and sensation. No pain in the medial lateral malleolus. No pain in the heel or Achilles. Patient's ambulatory with antalgic gait. No pain in the knee or hip. The left lower extremity and the upper extremities are unremarkable for acute bony tenderness or deformity. Neurovascular intact. Data Data Last Documented VS Vital Signs Date Time Temp Pulse Resp B/P (MAP) Pulse Ox O2 Delivery O2 Flow Rate FiO2 10/25/17 18:23 99.2 111 20 171/86 (114) 98 Room Air Orders Orders Foot, Complete ([id number]) (10/25/17 ) Ed Discharge Order (10/25/17 20:30) Ice/Cold Pack (10/25/17 20:30) Splint Or Brace Apply/Monitor (10/25/17 20:30) Crutches (10/25/17 20:30) Ibuprofen (Motrin) (10/25/17 20:30) MDM Medical Decision Making Medical Screen Exam Complete: Yes Emergency Medical Condition: Yes Medical Record Reviewed: Yes Interpretation(s) Last 24 hours Impressions Foot X-Ray 10/25/17 0000 Signed Impressions: Service Date/Time: Wednesday, October 25, 2017 18:57 - CONCLUSION: 1. Possible small avulsion fragment off the dorsum of the navicular. 2. No large fracture injury. Hima Garner MD Differential Diagnosis MDM: High Differential diagnoses: Fracture, sprain, strain, dislocation, contusion, neurovascular injury Narrative Course X-ray reveals a possible avulsion fracture off the navicular. He does not have point tenderness over this area. His pain appears be more over the anterior talar fibular ligament region. The patient is an unreliable historian. The patient will be splinted to ensure proper care. I suspect this is not an acute fracture but he will be treated as though it is. Patient's given Motrin 800 mg by mouth for pain. Posterior splint and crutches. Right foot avulsion fracture Diagnosis Primary Impression: right foot avulsion fracture Patient Instructions: General Instructions Additional Instructions: Rest. Elevation. Ice packs for the next 3 days. Posterior splint and crutches. No weight-bearing. Diclofenac Follow-up with an orthopedist or lpn rn hospice in one week. Return to the ER if any problems Med/Other Pt SpecificInfo: Prescription(s) given Scripts No Active Prescriptions or Reported Meds Disposition: 01 DISCHARGE HOME Condition: Stable Thomas Dupree Oct 25, 2017 20:35
[2017-10-25] MEDS ORDERED: DICL75TA PO (20:36)
== END 2017-10-25 20:56 | disposition home or self-care (01) ==
LOC: NEPK 18:22
DX: S92.901A Unspecified fracture of right foot, initial encounter for closed fracture (principal); F90.9 Attention-deficit hyperactivity disorder, unspecified type; F17.200 Nicotine dependence, unspecified, uncomplicated; Y93.39 Activity, other involving climbing, rappelling and jumping off; Z87.442 Personal history of urinary calculi; Z88.5 Allergy status to narcotic agent
CPT/HCPCS: 73630; 99285; E0113